=== PATIENT | male | born 1940 | race Caucasian/White ===

== ENCOUNTER 2016-09-14 17:36 | Emergency (ER) | payer MEDICARE ==
[2016-09-14] MEDS ORDERED: ONDANSETRON HCL 4 MG ODT TAB PO ONE (17:40)
[2016-09-14] MEDS ORDERED: BUBBLE GUM ENEMA 480 ML ENEMA PR ONE (17:40)
[2016-09-14 17:45] VITALS: TEMP 98.6; BMI 46.2
--- NOTE | 2016-09-14 17:46 | EDPRACDOC ---
ED Rectal & Constipation Pain - General Information Information Source: Patient, [facility] Mode of Arrival:: Ambulance Home Medications: Home Medications Amlodipine [Norvasc] 10 mg PO DAILY 09/14/16 Benazepril HCl [Lotensin] 20 mg PO BID 09/14/16 Canagliflozin [Invokana] 300 mg PO DAILY 09/14/16 Docusate Sodium [Colace] 100 mg PO TID #30 capsule 09/14/16 Liraglutide [Victoza 2-Darrick] 1.2 mg SQ DAILY 09/14/16 Metoprolol Tartrate [Lopressor] 50 mg PO BID 09/14/16 Naproxen Sodium [Aleve] 440 mg PO QAM 09/14/16 PEG-Electrolytes (Miralax) [Miralax] 17 gm PO DAILY #30 each 09/14/16 Pioglitazone HCl [Actos] 30 mg PO DAILY 09/14/16 Simvastatin [Zocor] 40 mg PO QHS 09/14/16 Allergies/Adverse Reactions: Allergies Allergy/AdvReac Type Severity Reaction Status Date / Time No Known Allergies Allergy Unverified 09/14/16 18:04 - History of Present Illness Onset: 3-4 DAYS Symptoms started: Reports: Spontaneous Location: Reports: Rectum Due To: Reports: Constipation History Of: Reports: None Severity:: Reports: Moderate Worsens: Reports: Nothing Improves: Reports: Nothing Associated Sign & Symptoms: Reports: Nausea - Other History Other History: PT SAID THAT HE HAS BEEN CONSTIPATED FOR THE PAST 3-4 DAYS. HE DEVELOPED NAUSEA AND SOME VOMITING TODAY, SO HE CALLED EMS. PT HAS NOT TAKEN ANYTHING AT HOME FOR HIS SX. PT GIVEN 4 MG OF ZOFRAN PO BY EMS. ED Past Medical History - Patient Medical History Cardiac History: Reports: Hypertension, Hypercholesterolemia Systemic History: Reports: Diabetes Surgical History: Reports: Other (BACK, HIP) - Social Medical History ETOH: None Substance Abuse: None Lives In: Home EDM Review of Systems - Review of Systems ROS Negative Except as Marked: Yes All systems reviewed and were negative except as marked Gastrointestinal: Constipation - Physical Exam Constitutional: Alert (Awake), No apparent distress Oriented to: Time, Person, Place Last recorded Vital Signs: Oxygen Pulse Oxygen Saturation O2 Device Oxygen Flow Rate Fraction of Inspired Oxygen ( FIO2) - HEENT Head: Normal ( normocephalic) Eye Exam: Normal (PERRL, EOMI, Sclera white) Oropharynx: Normal (Pharynx:Moist without exudate,Gums-no swelling) ENT EAC: Normal TMJ: Normal Nose: No Symptoms Reported (septum midline) Neck: Normal (FROM, trachea at midline) - Respiratory/Cardiovascular Respiratory: Normal - CTA (BBS clear to auscultation without adventitious sounds ) Cardiovascular: Bradycardia - GI Auscultation: Decreased Palpation: Normal Tenderness: Diffuse, Mild Rectal Exam: Heme negative stool, Impaction Stool: Brown - Musculoskeletal Back: Normal (Non-Tender) Extremities: Normal (Normal tone, Pulses 2+ No cyanosis or edema, FROM) - Integumentary Skin: Normal, Warm, Dry Lymphatics: Normal (no adenopathy) - Neurologic Memory Impaired: Normal Motor Function: Normal (Normal tone, Pulses 2+ No cyanosis or edema, FROM) Cranial Nerve: Normal (CN II-X11 intact sensation, strength 5/5) Cerebellar: Normal Mood Description: Normal Thought: Coherent Perception: Normal - Re-evaluation Re-evaluation 1 Re-evaluation Time: 21:52 (LARGE BM AFTER DISIMPACTION) - Diagnostic Imaging Abdomen Image interpreted by: Radiologist No acute findings. Moderate to large stool burden noted. No active cardiopulmonary disease. Decision Time to Discharge: 21:52 - Departure Yes I personally saw and evaluated the patient. Disposition: Home Condition: Fair Final Diagnosis: Abdominal pain, Fecal impaction Instructions: Fecal Impaction (ED), Constipation (ED), High Fiber Diet (ED) Education/Counseling Given To: Patient Education/Counseling Given Regarding: Diagnosis, Treatment Prescriptions: Docusate Sodium [Colace] 100 mg PO TID #30 capsule PEG-Electrolytes (Miralax) [Miralax] 17 gm PO DAILY #30 each
--- NOTE | 2016-09-14 18:16 | DIRPT ---
CLINICAL DATA: Abdominal pain and distention. nausea and vomiting and constipation for several days. EXAM: DG ABDOMEN ACUTE W/ 1V CHEST COMPARISON: None. FINDINGS: No evidence of dilated bowel loops. Moderate to large stool burden noted. No evidence of free air. No radiopaque calculi identified. Right hip prosthesis noted. Diffuse aorta iliac atherosclerotic calcification demonstrated. Heart size and mediastinal contours are within normal limits. Both lungs are clear. No evidence of pneumothorax or pleural effusion. IMPRESSION: No acute findings. Moderate to large stool burden noted. No active cardiopulmonary disease. Electronically Signed By: Anderson Vazquez M.D. On: 09/14/2016 18:13
[2016-09-14] MEDS ORDERED: NS 1,000 ML IV ONE (22:25)
[2016-09-14 23:22] VITALS: BP 110/57; PULSE 73
== END 2016-09-14 23:59 | disposition home or self-care (01) ==
LOC: ED 17:36
DX: K56.41 Fecal impaction (principal); E11.9 Type 2 diabetes mellitus without complications
CPT/HCPCS: 74022; 82270; 82962; 99284; A9270; J3490

== ENCOUNTER 2016-09-27 17:32 | Inpatient (IN) | payer MEDICARE ==
[2016-09-27 18:51] LABS: MPV 8.3 fL (7.4-10.4)
[2016-09-27] MEDS ORDERED: NS 1,000 ML IV ONE ×3 (19:04→20:50)
[2016-09-27] MEDS ORDERED: SODIUM CHLORIDE 0.9% 3 ML FLUSH FLUSH PRN (19:04)
[2016-09-27 19:05] LABS: BLOOD UREA NITROGEN 33 MG/DL (9-20); CALC CORRECTED 9.5 MG/DL (8.4-10.2); CALCIUM 8.5 MG/DL (8.4-10.2); CALCULATED OSMOLALITY 271 MOs/Kg (270-290); CHLORIDE 103 mEq/L (98-107); GLUCOSE 208 MG/DL (70-99); SODIUM LEVEL 134 mEq/L (137-146); TOTAL PROTEIN 6.2 G/DL (6.3-8.2)
--- NOTE | 2016-09-27 19:12 | EDPRACDOC ---
- General Information Information Source: Patient Mode Of Arrival: Car - History of Present Illness Onset: 2 weeks Pain Severity: None Pain Radiation: Reports: No Radiation Adult Abdominal History: Reports: Bowel Obstruction (RECENT SBO 2-3 WKS AGO) Modifying Factors: improves with: Other (PT STATES JUST ABOUT ANYTHING HE DOES CAUSES HIM TO HAVE DIARRHEA AND HE CANNOT CONTROL IT.) Associated Signs & Symptoms: Reports: Diarrhea Oral Intake: Normal Urinary Output: Decreased <Eve Best - Last Filed: 09/27/16 22:00> <Bud Abreu - Last Filed: 09/27/16 22:17> - General Information Chief Complaint: Abdominal Pain Stated Complaint: ABD PAIN Time Seen by Provider: 09/27/16 18:54 Home Medications: Home Medications Amlodipine [Norvasc] 10 mg PO DAILY 09/14/16 Benazepril HCl [Lotensin] 20 mg PO BID 09/14/16 Canagliflozin [Invokana] 300 mg PO DAILY 09/14/16 Docusate Sodium [Colace] 100 mg PO TID #30 capsule 09/14/16 Liraglutide [Victoza 2-Darrick] 1.2 mg SQ DAILY 09/14/16 Metoprolol Tartrate [Lopressor] 50 mg PO BID 09/14/16 Naproxen Sodium [Aleve] 440 mg PO QAM 09/14/16 PEG-Electrolytes (Miralax) [Miralax] 17 gm PO DAILY #30 each 09/14/16 Pioglitazone HCl [Actos] 30 mg PO DAILY 09/14/16 Simvastatin [Zocor] 40 mg PO QHS 09/14/16 Aspirin (Enteric Coated) [Ecotrin] 81 mg PO DAILY 09/27/16 Mv,Minerals/FA/Lycopene/Ginkgo [One Daily For Men 50+ Adv Tab] 1 tab PO DAILY Allergies/Adverse Reactions: Allergies Allergy/AdvReac Type Severity Reaction Status Date / Time No Known Allergies Allergy Unverified 09/14/16 18:04 - History of Present Illness HPI: PT PRESENTS TO ED WITH 13 DAYS OF DIARRHEA AFTER BEING IN THE HOSPITAL FOR SBO. STATES HIS BLOCKAGE WAS ABLE TO PASS WITHOUT SURGERY BUT SINCE HAS HAD DIARRHEA. STATES YELLOW MUCOUS VERY MALODOROUS. (Eve Bets) ED Past Medical History - History Reviewed Yes Nurses notes reviewed and agree except as marked Travel Outside of [place] in the Last 3 Months?: No - Patient Medical History Cardiac History: Reports: Hypertension, Hypercholesterolemia Psychological History: Denies: Depression Systemic History: Reports: Diabetes. Denies: Cancer Surgical History: Reports: Other (BACK, HIP) - Social Medical History Smoking Status: Never smoker ETOH: None Substance Abuse: None Lives With: Other Lives In: Home <Eve Best - Last Filed: 09/27/16 22:00> EDM Review of Systems - Review of Systems ROS Negative Except as Marked: Yes All systems reviewed and were negative except as marked Constitutional: No Symptoms Reported. negative: Fever, Chills, Weakness, Fatigue, Loss of Appetite Eyes: No Symptoms Reported. negative: Redness, Blurred Vision, Double Vision, Discharge, Pain, Light Sensitive, Photophobia Ears: No Symptoms Reported. negative: Pain, Hearing Loss, Drainage, Ear Pulling Throat: No Symptoms Reported. negative: Pain, Swelling Nose: No Symptoms Reported. negative: Congestion, Bleeding, Discharge, Injection, Swelling, Deformity, Ecchymosis, Tender, Abrasion, Laceration Mouth: No Symptoms Reported. negative: Pain, Drooling Respiratory: No Symptoms Reported. negative: Cough, Brassy Cough, Barky Cough, Shortness of Breath, Wheezing, Hemoptysis Cardiovascular: No Symptoms Reported. negative: Chest Pain, Palpitations, Syncope, Edema, Orthopnea, PND, Skin Mottling, Cyanosis Gastrointestinal: Diarrhea. negative: Constipation, Formula Intolerance, Melena , Nausea, Pain, Vomiting Genitourinary: No Symptoms Reported. negative: Dysuria, Hematuria, Frequency, Discharge, Bleeding, Testicular Pain, Neurological: No Symptoms Reported. negative: Headache, Dizziness, Seizure, Numbness, Weakness, Speech Difficulty, Gait Difficulty Musculoskeletal: No Symptoms Reported. negative: Neck, Chestwall, Ribs, Back, Shoulder, Arm, Elbow, Forearm, Wrist, Hand, Pelvis, Hip, Femur, Knee, Leg, Ankle , Foot Integumentary: No Symptoms Reported. negative: Itching, Rash, Bruising, Wound Allergic/Immunologic: No Symptoms Reported. negative: Hives, Itching Hematologic: No Symptoms Reported. negative: Lymphadenopathy, Easy Bruising, Easy Bleeding Endocrine: No Symptoms Reported. negative: Weight Gain, Weight Loss Psychiatric: No Symptoms Reported. negative: Anxiety, Depression, Hallucinations, Insomnia, Suicidal <Eve Best - Last Filed: 09/27/16 22:00> - Physical Exam Constitutional: No apparent distress, Alert (Awake) Oriented to: Time, Person, Place - HEENT Head: Normal ( normocephalic) Eye Exam: Normal (PERRL, EOMI, Sclera white) Oropharynx: Normal (Pharynx:Moist without exudate,Gums-no swelling) Tympanic Membrane: Normal ENT EAC: Normal TMJ: Normal Nose: No Symptoms Reported (septum midline) Neck: Normal (FROM, trachea at midline) - Respiratory/Cardiovascular Respiratory: Normal - CTA (BBS clear to auscultation without adventitious sounds ) Cardiovascular: Normal (RRR without murmur, gallop or rub) - GI Auscultation: Increased Palpation: Normal (Soft,No rebound or guarding, non distended) Tenderness: Non tender Casillas's Sign: Negative - Musculoskeletal Back: Normal (Non-Tender) Extremities: Normal (Normal tone, Pulses 2+ No cyanosis or edema, FROM) - Integumentary Skin: Normal, Warm, Dry Lymphatics: Normal (no adenopathy) - Neurologic Memory Impaired: Normal Motor Function: Normal (Normal tone, Pulses 2+ No cyanosis or edema, FROM) Cranial Nerve: Normal (CN II-X11 intact sensation, strength 5/5) Cerebellar: Normal Mood Description: Normal Perception: Normal <Eve Best - Last Filed: 09/27/16 22:00> - Differential Diagnosis Gastroenteritis, Other (CDIFF COLITIS) - Results 09/27/16 18:24 09/27/16 18:24 <Eve Best - Last Filed: 09/27/16 22:00> - Results 09/27/16 18:24 09/27/16 18:24 <Bud Abreu - Last Filed: 09/27/16 22:17> - Results WBC 19.3 xk/uL (3.8-10.8) H 09/27/16 18:24 RBC 3.76 xM/uL (4.70-6.10) L 09/27/16 18:24 Hgb 11.6 g/dL (14.0-18.0) L 09/27/16 18:24 Hct 34.9 % (42-52) L 09/27/16 18:24 MCV 93 fL (80-94) 09/27/16 18:24 MCH 30.8 pg (27-32) 09/27/16 18:24 MCHC 33.2 g/dl (33-36) 09/27/16 18:24 RDW 13.8 % (11.5-14.5) 09/27/16 18:24 Plt Count 471 xk/uL (130-400) H 09/27/16 18:24 MPV 8.3 fL (7.4-10.4) 09/27/16 18:24 Neut % (Auto) Cancelled 09/27/16 18:24 Lymph % (Auto) Cancelled 09/27/16 18:24 [place] % (Auto) Cancelled 09/27/16 18:24 Eos % (Auto) Cancelled 09/27/16 18:24 Baso % (Auto) Cancelled 09/27/16 18:24 Absolute Neuts (auto) Cancelled 09/27/16 18:24 Absolute Lymphs (auto) Cancelled 09/27/16 18:24 Seg Neuts % (Manual) 28 % (45-76) L 09/27/16 18:24 Band Neutrophils % 0 % (0-5) 09/27/16 18:24 Lymphocytes % (Manual) 67 % (17-44) H 09/27/16 18:24 Monocytes % (Manual) 4 % (0-10) 09/27/16 18:24 Eosinophils % (Manual) 1 % (0-5) 09/27/16 18:24 Absolute Neutrophils 5.40 xk/uL (1.7-8.2) 09/27/16 18:24 Absolute Lymphocytes 12.93 xk/uL (0.65-4.75) H 09/27/16 18:24 Platelet Estimate Norm (NORMAL) 09/27/16 18:24 RBC Morphology 1+ aniso 09/27/16 18:24 Sodium 134 mEq/L (137-146) L 09/27/16 18:24 Potassium 4.5 mEq/L (3.5-5.1) 09/27/16 18:24 Chloride 103 mEq/L (98-107) 09/27/16 18:24 Carbon Dioxide 20 mMOL/L (22-33) L 09/27/16 18:24 Anion Gap 16 mEq/L (8-16) 09/27/16 18:24 BUN 33 MG/DL (9-20) H 09/27/16 18:24 Creatinine 1.70 MG/DL (0.66-1.25) H 09/27/16 18:24 Estimated GFR (MDRD) 39 mL/min (>=60) L 09/27/16 18:24 Glucose 208 MG/DL (70-99) H 09/27/16 18:24 Calculated Osmolality 271 MOs/Kg (270-290) 09/27/16 18:24 Lactic Acid 1.1 mEq/L (0.7-2.1) 09/27/16 19:37 Calcium 8.5 MG/DL (8.4-10.2) 09/27/16 18:24 Corrected Calcium 9.5 MG/DL (8.4-10.2) 09/27/16 18:24 Total Bilirubin 0.6 MG/DL (0.2-1.3) 09/27/16 18:24 AST 89 IU/L (17-59) H 09/27/16 18:24 ALT 85 IU/L (21-72) H 09/27/16 18:24 Alkaline Phosphatase 79 IU/L (50-160) 09/27/16 18:24 Total Protein 6.2 G/DL (6.3-8.2) L 09/27/16 18:24 Albumin 3.0 G/DL (3.5-5.0) L 09/27/16 18:24 Amylase 74 IU/L (30-110) 09/27/16 18:24 Lipase 181 U/L (23-300) 09/27/16 18:24 Urine Color Yellow 09/27/16 20:00 Urine Clarity Sl hzy 09/27/16 20:00 Urine pH 5.0 (5.0-8.0) 09/27/16 20:00 Ur Specific [place] 1.015 (1.003-1.035) 09/27/16 20:00 Urine Protein 1+ (NEG/TRACE) H 09/27/16 20:00 Urine Glucose (UA) 3+ (NEGATIVE) 09/27/16 20:00 Urine Ketones Neg (NEGATIVE) 09/27/16 20:00 Urine Occult Blood Neg (NEG/TRACE) 09/27/16 20:00 Urine Nitrite Neg (NEGATIVE) 09/27/16 20:00 Urine Bilirubin Neg (NEGATIVE) 09/27/16 20:00 Urine Urobilinogen <2.0 MG/DL (0-1) 09/27/16 20:00 Ur Leukocyte Esterase Neg (NEGATIVE) 09/27/16 20:00 Urine RBC 0-2 (0-2) 09/27/16 20:00 Urine WBC 2-5 (0-2) H 09/27/16 20:00 Ur Epithelial Cells 2+ 09/27/16 20:00 Urine Bacteria 1+ (NEG/FEW) H 09/27/16 20:00 Urine Mucus Occ (NEG/OCC) 09/27/16 20:00 Lab Results 09/27/16 09/27/16 09/27/16 20:00 19:37 18:24 WBC 19.3 H RBC 3.76 L Hgb 11.6 L Hct 34.9 L MCV 93 MCH 30.8 MCHC 33.2 RDW 13.8 Plt Count 471 H MPV 8.3 Neut % (Auto) Cancelled Lymph % (Auto) Cancelled [place] % (Auto) Cancelled Eos % (Auto) Cancelled Baso % (Auto) Cancelled Absolute Neuts (auto) Cancelled Absolute Lymphs (auto) Cancelled Seg Neuts % (Manual) 28 L Band Neutrophils % 0 Lymphocytes % (Manual) 67 H Monocytes % (Manual) 4 Eosinophils % (Manual) 1 Absolute Neutrophils 5.40 Absolute Lymphocytes 12.93 H Platelet Estimate Norm RBC Morphology 1+ aniso Sodium Potassium Chloride Carbon Dioxide Anion Gap BUN Creatinine Estimated GFR (MDRD) Glucose Calculated Osmolality Lactic Acid 1.1 Calcium Corrected Calcium Total Bilirubin AST ALT Alkaline Phosphatase Total Protein Albumin Amylase Lipase Urine Color Yellow Urine Clarity Sl hzy Urine pH 5.0 Ur Specific [place] 1.015 Urine Protein 1+ H Urine Glucose (UA) 3+ Urine Ketones Neg Urine Occult Blood Neg Urine Nitrite Neg Urine Bilirubin Neg Urine Urobilinogen <2.0 Ur Leukocyte Esterase Neg Urine RBC 0-2 Urine WBC 2-5 H Ur Epithelial Cells 2+ Urine Bacteria 1+ H Urine Mucus Occ 09/27/16 18:24 WBC RBC Hgb Hct MCV MCH MCHC RDW Plt Count MPV Neut % (Auto) Lymph % (Auto) [place] % (Auto) Eos % (Auto) Baso % (Auto) Absolute Neuts (auto) Absolute Lymphs (auto) Seg Neuts % (Manual) Band Neutrophils % Lymphocytes % (Manual) Monocytes % (Manual) Eosinophils % (Manual) Absolute Neutrophils Absolute Lymphocytes Platelet Estimate RBC Morphology Sodium 134 L Potassium 4.5 Chloride 103 Carbon Dioxide 20 L Anion Gap 16 BUN 33 H Creatinine 1.70 H Estimated GFR (MDRD) 39 L Glucose 208 H Calculated Osmolality 271 Lactic Acid Calcium 8.5 Corrected Calcium 9.5 Total Bilirubin 0.6 AST 89 H ALT 85 H Alkaline Phosphatase 79 Total Protein 6.2 L Albumin 3.0 L Amylase 74 Lipase 181 Urine Color Urine Clarity Urine pH Ur Specific [place] Urine Protein Urine Glucose (UA) Urine Ketones Urine Occult Blood Urine Nitrite Urine Bilirubin Urine Urobilinogen Ur Leukocyte Esterase Urine RBC Urine WBC Ur Epithelial Cells Urine Bacteria Urine Mucus (Eve Best) (Bud Abreu) <Eve Best - Last Filed: 09/27/16 22:00> - Departure Yes I personally saw and evaluated the patient. Disposition: Admit IP To This Hospital Decision to Admit Time: 22:17 Decision to admit date: 09/27/16 Decision to admit: from ED - Physician Consulted Hospitalist Time Called: 22:17 Provider Called: Andrew Dillon Time Parachute Folder Returned Call: 22:17 <Bud Abreu - Last Filed: 09/27/16 22:17> - Departure Condition: Stable Final Diagnosis: Colitis, Dehydration Sacral decubitus ulcer Qualifiers: Pressure ulcer stage: unspecified pressure ulcer stage Qualified Code(s): L89.159 - Pressure ulcer of sacral region, unspecified stage Prescriptions: No Action Simvastatin [Zocor] 40 mg PO QHS Naproxen Sodium [Aleve] 440 mg PO QAM Liraglutide [Victoza 2-Darrick] 1.2 mg SQ DAILY Pioglitazone HCl [Actos] 30 mg PO DAILY Canagliflozin [Invokana] 300 mg PO DAILY Benazepril HCl [Lotensin] 20 mg PO BID Amlodipine [Norvasc] 10 mg PO DAILY Metoprolol Tartrate [Lopressor] 50 mg PO BID Docusate Sodium [Colace] 100 mg PO TID #30 capsule PEG-Electrolytes (Miralax) [Miralax] 17 gm PO DAILY #30 each Aspirin (Enteric Coated) [Ecotrin] 81 mg PO DAILY Mv,Minerals/FA/Lycopene/Ginkgo [One Daily For Men 50+ Adv Tab] 1 tab PO DAILY
[2016-09-27 20:17] LABS: SEG NEUTROPHIL 28 % (45-76)
[2016-09-27 20:18] LABS: LEUKOCYTES/URINE NEG (NEGATIVE); NITRITE/URINE NEG (NEGATIVE); RBC/URINE 0-2 (0-2); URINE OCCULT BLOOD NEG (NEG/TRACE)
[2016-09-27] MEDS ORDERED: Pharmacy Review for Metformin - IV Contrast Given SCH (21:00)
--- NOTE | 2016-09-27 21:41 | DIRPT ---
CLINICAL DATA: Sacral decubitus cellulitis. Evaluate for pelvic involvement. Diarrhea for 13 days. EXAM: CT ABDOMEN AND PELVIS WITH CONTRAST TECHNIQUE: Multidetector CT imaging of the abdomen and pelvis was performed using the standard protocol following bolus administration of intravenous contrast. CONTRAST: 70 mL Isovue 370 COMPARISON: 10/24/2015 FINDINGS: The lung bases are clear. Coronary artery calcifications. The liver, spleen, gallbladder, pancreas, adrenal glands, inferior vena cava, and retroperitoneal lymph nodes are unremarkable. Multiple renal cysts bilaterally similar to prior study. No hydronephrosis. Extensive calcification of the abdominal aorta and branch vessels. Particularly prominent calcification in the celiac axis and superior mesenteric artery. 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 Calcification also demonstrated in the inferior mesenteric artery. Stomach and small bowel are decompressed. Gas and stool in the colon without abnormal distention. No small bowel wall thickening. No free air or free fluid in the abdomen. Small periumbilical hernia containing fat. Pelvis: The rectosigmoid colon is decompressed but there appears to be diffuse wall thickening of the rectosigmoid colon with mild infiltration in the surrounding fat. This could represent colitis either due to infectious or inflammatory process. Consider ulcer of colitis. Scattered diverticula are present. No definite findings of diverticulitis. Bladder wall is not significantly thickened. Prostate gland is enlarged, measuring 4.4 cm transverse dimension. No pelvic mass or lymphadenopathy. Appendix is not identified. Right hip arthroplasty. Streak artifact from the arthroplasty obscures visualization of some of the low pelvis. The sacrum appears intact without evidence of sclerosis or cortical disruption. Nothing to suggest osteomyelitis. Focal skin defect and infiltration below the level of the coccyx consistent with known sacral ulceration. No abscess. No definite extension to the perianal region. IMPRESSION: 1. Inflammatory changes involving the rectosigmoid colon suggesting infectious or inflammatory colitis. Consider ulcerative colitis. 2. Mild inflammatory changes and ulceration at the midline over the coccygeal region. No evidence of bone involvement or abscess. 3. Extensive vascular calcifications involving coronary arteries, abdominal aorta, and mesenteric vessels. Electronically Signed By: Randy Chaparro M.D. On: 09/27/2016 21:38
--- NOTE | 2016-09-27 22:27 | HISTPHYS ---
- Chief Complaint I have had diarrhea for the past 2 weeks after getting seen (disimpacted) in the emergency room and this is terrible. - History of Present Illness Patient very pleasant 76-year-old white were who never smoked but been exposed to secondhand smoke and states that ever since I got disimpacted in the emergency room last week I have had diarrhea. Diarrhea occurs with any motion. It is a real problem. Stool was black today and heme-positive. Stool is not orally chest watery. I been feeling weak, he says, and falling or nearly falling is becoming a significant occurrence. He denies any exposure to anyone with diarrhea but does like to eat at [facility]. He has had a 30 year history of back problems impeding his ability to ambulate which is gotten worse recently. With the diarrhea and his difficulty getting around he has developed worsening of his previously existing sacral decubitus and now needs a specialty bed. He saw Dr. Springer in the past without much improvement who then referred him to the metal polisher which seems to have helped to a mild degree over the past 5 months. Three months ago he had E coli growing out of the sacral decubitus and he took an antibiotic for this but otherwise is not been on any recent antibiotics. He was seen in Dr. Shepard office today and was recommended to follow up with Dr. Whittaker. Even though his white counts little over 19,000 his stool for C diff is negative. He never smoked but he has been exposed to lot of secondhand smoke. His not too long ago metastatic breast cancer. He uses a cane which has progressed to a walker with his increased weakness. - Medical History Cardiac History: Reports: Hypertension, Hypercholesterolemia Respiratory History: Reports: No Significant History GI/ History: Reports: PMH GI Yes/No Other Musculoskeletal History: Reports: Arthritis Systemic History: Reports: Diabetes. Denies: Cancer Neurological History: Reports: Other Psychological History: Denies: Depression - Surgical History Reports: Other (BACK, HIP) - Medictions/Allergies Allergies No Known Allergies Allergy (Unverified 09/14/16 18:04) Current Medication List: Reviewed Home Medications Amlodipine [Norvasc] 10 mg PO DAILY 09/14/16 Benazepril HCl [Lotensin] 20 mg PO BID 09/14/16 Canagliflozin [Invokana] 300 mg PO DAILY 09/14/16 Docusate Sodium [Colace] 100 mg PO TID #30 capsule 09/14/16 Liraglutide [Victoza 2-Darrick] 1.2 mg SQ DAILY 09/14/16 Metoprolol Tartrate [Lopressor] 50 mg PO BID 09/14/16 Naproxen Sodium [Aleve] 440 mg PO QAM 09/14/16 PEG-Electrolytes (Miralax) [Miralax] 17 gm PO DAILY #30 each 09/14/16 Pioglitazone HCl [Actos] 30 mg PO DAILY 09/14/16 Simvastatin [Zocor] 40 mg PO QHS 09/14/16 Aspirin (Enteric Coated) [Ecotrin] 81 mg PO DAILY 09/27/16 Mv,Minerals/FA/Lycopene/Ginkgo [One Daily For Men 50+ Adv Tab] 1 tab PO DAILY - Family History Reports: Hypertension, Diabetes, Cancer (Father with leukemia age 67), Blood Disorders (Mom with blood clot age 88), Other (Hyper cholesterolemia) - Social History Travel Outside of [place] in the Last 3 Months?: No Lives: Alone Smoking Status: Never smoker (But 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) Social History: Denies: Alcohol Use, Substance Use Disorder - Review of Systems Constitutional: No Symptoms Reported (No Fever, chills, wt loss/gain, diaphoresis,fatigue/malaise.) Eyes: No Symptoms Reported (No blurry vision, visual changes, eye pain, or eye redness.) Ears: No Symptoms Reported (No ear pain or discharge) Nose: No Symptoms Reported (No nasal discharge/congestion or bleeding) Mouth: No Symptoms Reported (No oropharyngeal lesions or erythema) Throat/Neck: No Symptoms Reported (No throat pain or swelling.No oropharyngeal lesions or erythema.) Respiratory: No Symptoms Reported (No cough, wheezing, or shortness of breath.) Cardiovascular: No Symptoms Reported (No chest pain or palpitations.) Gastrointestinal: Diarrhea, Melena, Other (Obesity BMI 32.1) Genitourinary: No Symptoms Reported (No dysuria or hematuria.) Neurological: Gait Difficulty, Numbness (Legs), Weakness (Lower extremity), Tingling (Leg) Musculoskeletal:: Chronic low back pain, Osteoarthritis Integumentary: Wound, Pressure Sore (Sacral decubitus since been problematic of which to take care) Allergic/Immunologic: No Symptoms Reported (no rashes or lesions) Hematologic: No Symptoms Reported (No chronic anemia, bleeding, or easy bruising.), Other (Lymphatics- no lymph node swelling or pain.) Endocrine: Diabetes Psychiatric: No Symptoms Reported (Fully oriented, with normal and appropriate affect.) - Physical Exam Vital Signs: Initial Vitals Temperature 98.7 F 09/27/16 18:23 Pulse Rate 94 09/27/16 18:23 Respiratory Rate 18 09/27/16 18:23 Blood Pressure 143/72 09/27/16 18:23 Pulse Oxygen Saturation 96 09/27/16 18:23 Constitutional: Alert (Awake, Fully oriented. Normal and appropriate affect.Well appearing. Well nourished.), No apparent distress Oriented to: Time, Person, Place - HEENT Head: Normal (normocephalic, atraumatic.), Other (No cervical lymphadenopathy. No supraclavicular lymphadenopathy. Neck: No palpable mass, supple , trachea midline.) Eye: Normal (pupils equal, reactive to light, and round; EOMI, Sclera white) Oropharynx: Normal (Pharynx: Moist without exudate,Gums-no swelling, No oropharyngeal lesions or erythema, Mucous membranes are dry.) ENT EAC: Normal (No oropharyngeal lesions or erythema. Mucous membranes are dry. ) TMJ: Normal Nose: No Symptoms Reported (septum midline, Nares patent, without discharge or bleeding.) Respiratory: Normal - CTA (Clear to auscultation bilaterally. No wheezing, rales , rhonchi. Chest wall movements are symmetric. No use of accessory muscles to breathe.) Cardiovascular: Normal (RRR , Normal S1, S2. No murmurs, rubs, or gallops. PMI non-displaced. Carotids: no carotid bruits. No bradycardia or tachycardia. DP pulses 2+ bilaterally.) - GI Auscultation: Normal (normal active sounds) Palpation: Normal (Soft,non distended,nontender. No hepatosplenomegaly.) Tenderness: Non tender (No rebound or guarding) Casillas's Sign: Negative Rectal Exam: Heme positive stool Stool: Loose - Musculoskeletal Back: Normal (Non-Tender) Extremities: Normal (Normal tone, DP pulses 2+ bilaterally, No cyanosis or edema bilaterally, FROM bilaterally.) Spine: non-tender, limited range of motion - Integumentary Skin: Other (Sacral decubitus that is been problematic and needs physical therapy evaluation) Lymphatics: Normal (No cervical lymphadenopathy. No supraclavicular lymphadenopathy.) - Neurologic Memory Impaired: Normal Motor Function: Normal (Motor 5/5 throughout.Normal tone, Pulses 2+ No cyanosis or edema, FROM) Cranial Nerve: Normal (CN II-XII intact sensation, strength 5/5) Cerebellar: Normal (Babinski: toes downgoing bilaterally. Intact Finger to nose. Sensory grossly intact to light touch. Intact rapid alternating movements bilaterally. No pronator drift.) Mood Description: Normal (Fully oriented. Normal and appropriate affect.) Thought: Coherent Perception: Normal (Normal and appropriate affect.) - Focused CV Perfusion Exam Vital Signs: Last Vital Signs Temp 98.7 F 09/27/16 18:23 Pulse 94 09/27/16 18:23 Resp 18 09/27/16 18:23 BP 143/72 09/27/16 18:23 Pulse Ox 96 09/27/16 18:23 - Lab Results 09/27/16 18:24 09/27/16 18:24 Laboratory Results - last 24 hr 09/27/16 09/27/16 09/27/16 00:00 18:24 18:24 WBC 19.3 H RBC 3.76 L Hgb 11.6 L Hct 34.9 L MCV 93 MCH 30.8 MCHC 33.2 RDW 13.8 Plt Count 471 H MPV 8.3 Neut % (Auto) Cancelled Lymph % (Auto) Cancelled [place] % (Auto) Cancelled Eos % (Auto) Cancelled Baso % (Auto) Cancelled Absolute Neuts (auto) Cancelled Absolute Lymphs (auto) Cancelled Seg Neuts % (Manual) 28 L Band Neutrophils % 0 Lymphocytes % (Manual) 67 H Monocytes % (Manual) 4 Eosinophils % (Manual) 1 Absolute Neutrophils 5.40 Absolute Lymphocytes 12.93 H Platelet Estimate Norm RBC Morphology 1+ aniso Sodium 134 L Potassium 4.5 Chloride 103 Carbon Dioxide 20 L Anion Gap 16 BUN 33 H Creatinine 1.70 H Estimated GFR (MDRD) 39 L Glucose 208 H Hemoglobin A1c Calculated Osmolality 271 Lactic Acid Calcium 8.5 Corrected Calcium 9.5 Total Bilirubin 0.6 AST 89 H ALT 85 H Alkaline Phosphatase 79 Total Protein 6.2 L Albumin 3.0 L Amylase 74 Lipase 181 TSH 4.67 Urine Color Urine Clarity Urine pH Ur Specific [place] Urine Protein Urine Glucose (UA) Urine Ketones Urine Occult Blood Urine Nitrite Urine Bilirubin Urine Urobilinogen Ur Leukocyte Esterase Urine RBC Urine WBC Ur Epithelial Cells Urine Bacteria Urine Mucus 09/27/16 09/27/16 09/27/16 19:37 20:00 22:28 WBC RBC Hgb Hct MCV MCH MCHC RDW Plt Count MPV Neut % (Auto) Lymph % (Auto) [place] % (Auto) Eos % (Auto) Baso % (Auto) Absolute Neuts (auto) Absolute Lymphs (auto) Seg Neuts % (Manual) Band Neutrophils % Lymphocytes % (Manual) Monocytes % (Manual) Eosinophils % (Manual) Absolute Neutrophils Absolute Lymphocytes Platelet Estimate RBC Morphology Sodium Potassium Chloride Carbon Dioxide Anion Gap BUN Creatinine Estimated GFR (MDRD) Glucose Hemoglobin A1c 6.9 H Calculated Osmolality Lactic Acid 1.1 Calcium Corrected Calcium Total Bilirubin AST ALT Alkaline Phosphatase Total Protein Albumin Amylase Lipase TSH Urine Color Yellow Urine Clarity Sl hzy Urine pH 5.0 Ur Specific [place] 1.015 Urine Protein 1+ H Urine Glucose (UA) 3+ Urine Ketones Neg Urine Occult Blood Neg Urine Nitrite Neg Urine Bilirubin Neg Urine Urobilinogen <2.0 Ur Leukocyte Esterase Neg Urine RBC 0-2 Urine WBC 2-5 H Ur Epithelial Cells 2+ Urine Bacteria 1+ H Urine Mucus Occ - Diagnostic Findings CT abdomen pelvis shows the following: FINDINGS: The lung bases are clear. Coronary artery calcifications. The liver, spleen, gallbladder, pancreas, adrenal glands, inferior vena cava, and retroperitoneal lymph nodes are unremarkable. Multiple renal cysts bilaterally similar to prior study. No hydronephrosis. Extensive calcification of the abdominal aorta and branch vessels. Particularly prominent calcification in the celiac axis and superior mesenteric artery. 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 Calcification also demonstrated in the inferior mesenteric artery. Stomach and small bowel are decompressed. Gas and stool in the colon without abnormal distention. No small bowel wall thickening. No free air or free fluid in the abdomen. Small periumbilical hernia containing fat. Pelvis: The rectosigmoid colon is decompressed but there appears to be diffuse wall thickening of the rectosigmoid colon with mild infiltration in the surrounding fat. This could represent colitis either due to infectious or inflammatory process. Consider ulcer of colitis. Scattered diverticula are present. No definite findings of diverticulitis. Bladder wall is not significantly thickened. Prostate gland is enlarged, measuring 4.4 cm transverse dimension. No pelvic mass or lymphadenopathy. Appendix is not identified. Right hip arthroplasty. Streak artifact from the arthroplasty obscures visualization of some of the low pelvis. The sacrum appears intact without evidence of sclerosis or cortical disruption. Nothing to suggest osteomyelitis. Focal skin defect and infiltration below the level of the coccyx consistent with known sacral ulceration. No abscess. No definite extension to the perianal region. IMPRESSION: 1. Inflammatory changes involving the rectosigmoid colon suggesting infectious or inflammatory colitis. Consider ulcerative colitis. 2. Mild inflammatory changes and ulceration at the midline over the coccygeal region. No evidence of bone involvement or abscess. 3. Extensive vascular calcifications involving coronary arteries, abdominal aorta, and mesenteric vessels. - Assessment (1) Ischemic colitis K55.9 - VASCULAR DISORDER OF INTESTINE, UNSPECIFIED Chronic Present on Admission: Yes My main concern is that he has ischemic colitis and will consult Dr. Whittaker. May need surgical intervention or angiography. (2) Diarrhea R19.7 - DIARRHEA, UNSPECIFIED Acute Present on Admission: Yes Qualifiers: Diarrhea type: unspecified type Qualified Code(s): R19.7 - Diarrhea, unspecified Concerned his diarrhea is due to ischemic colitis and may need angiogram to consider whether not he needs a stent or more. Will consult Dr. Whittaker in the morning as Dr. Shepard has requested for him in the office. Stool for C difficile is negative and cultures white cells etc are pending. 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 Physical therapy for wound care is ordered. (4) Abdominal pain R10.9 - UNSPECIFIED ABDOMINAL PAIN Acute Present on Admission: Yes Likely associated with the etiology of his colitis. (5) Hypertension I10 - ESSENTIAL (PRIMARY) HYPERTENSION Chronic Present on Admission: Yes Qualifiers: Hypertension type: essential hypertension Qualified Code(s): I10 - Essential (primary) hypertension Continuation of previous antihypertensive therapy is necessary. (6) Non-insulin dependent type 2 diabetes mellitus E11.9 - TYPE 2 DIABETES MELLITUS WITHOUT COMPLICATIONS Chronic Present on Admission: Yes Sliding scale insulin therapy and continuation of previous medications is necessary. Glycohemoglobin and urine microalbumin is ordered. (7) Hyperlipidemia E78.5 - HYPERLIPIDEMIA, UNSPECIFIED Chronic Present on Admission: Yes Qualifiers: Hyperlipidemia type: mixed hyperlipidemia Qualified Code(s): E78.2 - Mixed hyperlipidemia Switch the Zocor to Lipitor due to its interaction with the Norvasc. (8) Leukocytosis D72.829 - ELEVATED WHITE BLOOD CELL COUNT, UNSPECIFIED Acute Present on Admission: Yes Qualifiers: Leukocytosis type: bandemia Qualified Code(s): D72.825 - Bandemia Likely associated with this colitis. Case Care Discussed with: Patient, Nursing Staff, Resource Management Total Time: 1 hr 22 min Critical Care: No Code: 48524
[2016-09-27] MEDS ORDERED: SENNA CONCENTRATE TAB PO PRN (22:28)
[2016-09-27] MEDS ORDERED: GLUCOSE (ORAL GEL) 15 GM TUBE PO PRN (22:28)
[2016-09-27] MEDS ORDERED: TUSSIONEX 5 ML ORAL SYRINGE PO PRN (22:28)
[2016-09-27] MEDS ORDERED: ACETAMINOPHEN 325 MG SUPP PR PRN (22:28)
[2016-09-27] MEDS ORDERED: ONDANSETRON HCL 4 MG/2 ML VIAL IV PRN (22:28)
[2016-09-27] MEDS ORDERED: BENZONATATE 100 MG PERLES PO PRN (22:28)
[2016-09-27] MEDS ORDERED: ACETAMINOPHEN 325 MG/TAB TABLET PO PRN (22:28)
[2016-09-27] MEDS ORDERED: GLUCAGON 1 MG VIAL SQ PRN (22:28)
[2016-09-27] MEDS ORDERED: PROMETHAZINE 25 MG/ML VIAL IV PRN (22:28)
[2016-09-27] MEDS ORDERED: BISACODYL 10 MG SUPP PR PRN (22:28)
[2016-09-27] MEDS ORDERED: DEXTROSE 25 GM/50 ML PFS IV PRN (22:28)
[2016-09-27] MEDS ORDERED: OXYCODONE HCL 5 MG TABLET PO PRN (22:30)
[2016-09-27] MEDS ORDERED: ZOLPIDEM TARTRATE 5 MG TAB PO PRN (22:30)
[2016-09-27] MEDS ORDERED: Albuterol/Ipratropium Neb 3 ML NEB NEB PRN (22:30)
[2016-09-27] MEDS ORDERED: ENOXAPARIN 40 MG/0.4 ML PFS SQ SCH (23:00)
[2016-09-27] MEDS ORDERED: LIRAGLUTIDE 18 MG/3ML (0.6 MG/0.1 ML) PEN SQ SCH (23:00)
[2016-09-27] MEDS: NS 1,000 ML IV SCH (23:52)
[2016-09-28] MEDS: ENOXAPARIN 60 MG/0.6 ML PFS SQ SCH ×2 (00:05→21:32)
[2016-09-28] MEDS: PROBIOTIC BLEND TAB PO SCH ×4 (02:31→17:12)
[2016-09-28] MEDS: SODIUM CHLORIDE 0.9% 3 ML FLUSH FLUSH SCH ×2 (06:52→11:41)
[2016-09-28] MEDS: Docusate Sodium 100 MG CAP PO SCH ×2 (06:52→11:41)
[2016-09-28 07:22] LABS: BLOOD UREA NITROGEN 28 MG/DL (9-20); CALCIUM 7.8 MG/DL (8.4-10.2); CALCULATED OSMOLALITY 268 MOs/Kg (270-290); CHLORIDE 110 mEq/L (98-107); GLUCOSE 133 MG/DL (70-99); SODIUM LEVEL 135 mEq/L (137-146)
[2016-09-28 07:31] LABS: MPV 8.3 fL (7.4-10.4)
[2016-09-28] MEDS: REGULAR INSULIN 100 UNITS/ML - 3 ML VIAL SQ SCH ×5 (07:52→23:38)
[2016-09-28] MEDS ORDERED: ATORVASTATIN 40 MG TAB PO SCH (09:00)
[2016-09-28] MEDS ORDERED: LIRAGLUTIDE 18 MG/3ML (0.6 MG/0.1 ML) PEN SQ SCH (09:00)
[2016-09-28] MEDS ORDERED: [UNRECOGNIZED DRUG - OTHER] PO SCH (09:00)
[2016-09-28] MEDS ORDERED: GINKGO PO SCH (09:00)
[2016-09-28] MEDS ORDERED: MV MINERALS PO SCH (09:00)
[2016-09-28] MEDS ORDERED: LYCOPENE PO SCH (09:00)
[2016-09-28] MEDS ORDERED: CANAGLIFLOZIN 100 MG PO SCH (09:00)
[2016-09-28] MEDS ORDERED: PIOGLITAZONE HCL 15 MG TAB PO SCH (09:00)
[2016-09-28] MEDS ORDERED: PIOGLITAZONE HCL 30 MG PO SCH (09:00)
[2016-09-28] MEDS: METOPROLOL TARTRATE 50 MG TAB PO SCH ×2 (09:03→21:32)
[2016-09-28] MEDS: AMLODIPINE 10 MG TAB PO SCH (09:04)
[2016-09-28] MEDS: NS 1,000 ML IV SCH ×2 (09:08→17:13)
[2016-09-28 09:29] LABS: SEG NEUTROPHIL 14 % (45-76)
--- NOTE | 2016-09-28 09:38 | PCM.CONSGI ---
Consult Date: 09/28/16 Consult Requesting Physician: Andrew Dillon Consult Reason: Diarrhea - History of Present Illness Patient is a 76-year-old male was admitted to the hospital with worsening severe diarrhea. This diarrhea started about 2 weeks ago. Prior to that he had intermittent constipation, and he had a fecal impaction just prior to the onset of the diarrhea. There has been no visible blood per rectum. The stools have been multiple throughout the day and night, too numerous to count. He has incontinence. The patient's medical situation is complicated by the presence of a decubitus ulcer which has developed over the past 6 months due to neurological impairment and numbness secondary to degenerative disc disease. Patient denies any abdominal pain, heartburn, difficulty swallowing, nausea or vomiting. He had a colonoscopy 5 or 6 years ago. He was seen as an outpatient the day prior to admission and a stool for Clostridium difficile was negative. The stool was also cultured and is pending. I just talked to the laboratory, and confirmed the negative stool for Clostridium difficile. The culture plates are still early, but no significant growth is present at this point. Antigen test for Campylobacter and other bacterial pathogens are negatiive. - Past Medical History Cardiac History: Reports: Hypertension, Hypercholesterolemia. Denies: Coronary Artery Disease Respiratory History: Denies: Asthma, COPD GI/ History: Reports: Chronic Constipation Musculoskeletal History: Reports: Arthritis, Other Systemic History: Reports: Diabetes, Hyperthyroidism. 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 including numbness and ambulation difficulty - Surgical History Past Surgical History: Reports: No Significant History - Family History Family History: Reports: Blood Disorders (Mom with blood clot age 88), Diabetes, Cancer (no famioly history of colon cancer), Hypertension - Allergies Allergies No Known Allergies Allergy (Unverified 09/14/16 18:04) - Medications Home Medications Amlodipine [Norvasc] 10 mg PO DAILY 09/14/16 Benazepril HCl [Lotensin] 20 mg PO BID 09/14/16 Canagliflozin [Invokana] 300 mg PO DAILY 09/14/16 Docusate Sodium [Colace] 100 mg PO TID #30 capsule 09/14/16 Liraglutide [Victoza 2-Darrick] 1.2 mg SQ DAILY 09/14/16 Metoprolol Tartrate [Lopressor] 50 mg PO BID 09/14/16 Naproxen Sodium [Aleve] 440 mg PO QAM 09/14/16 PEG-Electrolytes (Miralax) [Miralax] 17 gm PO DAILY #30 each 09/14/16 Pioglitazone HCl [Actos] 30 mg PO DAILY 09/14/16 Simvastatin [Zocor] 40 mg PO QHS 09/14/16 Aspirin (Enteric Coated) [Ecotrin] 81 mg PO DAILY 09/27/16 Mv,Minerals/FA/Lycopene/Ginkgo [One Daily For Men 50+ Adv Tab] 1 tab PO DAILY - Social History Lives: Alone Smoking Status: Never smoker (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 negative: Chills, Fever Eyes: No Symptoms Reported Ears: No Symptoms Reported Throat: No Symptoms Reported Nose: No Symptoms Reported Mouth: No Symptoms Reported Respiratory: negative: Cough, Shortness of Breath, Wheezing Cardiovascular: negative: Chest Pain, Edema, Palpitations, Syncope Gastrointestinal: Diarrhea, Constipation (Previous history, last episode 2 weeks ago). negative: Nausea, Vomiting, Abdominal Pain, Melena, Hematochezia, Dysphasia, Heartburn Genitourinary: negative: Frequency, Hematuria Neurological: Gait Difficulty, Numbness (Lower trunk and extremities). negative : Dizziness, Headache, Seizure Musculoskeletal: Arthritis Integumentary: Pressure Sore Hematologic: negative: Lymphadenopathy, Anemia Endocrine: No Symptoms Reported - Exam Vital Signs: Temperature: 98.8 F (09/28/16 06:00) HR: 89 (09/28/16 06:00) RR: 20 (09/28/16 06:00) BP: 128/56 (09/28/16 06:00) Pulse Ox: 96 (09/28/16 06:00) General: Alert, Oriented x3, Cooperative, No acute distress HEENT: PERRLA. negative: Icteric Sclera, Pallor Respiratory: Normal - CTA. negative: Rales, Rhonchi, Wheezes Cardiovascular: Regular rate, Normal S1, Normal S2, No murmurs Gastrointestinal: Soft, Bowel Sounds (Normoactive bowel sounds). negative: Tender, Guarding, Hepatosplenomegaly Rectal Exam: Performed in presence of nurse, Normal to Palpation, Normal Prostate, Residue Hemoccult (-) Extremities: negative: Tenderness, Edema Skin: Warm,Dry and Intact, No rashes, Ulceration (2 centimeter decubitus ulceration over the sacrum) Neurological: Normal speech, Cranial nerves 3-12 NL Psych/Mental Status: Appropriate, Normal Affect, Cooperative - Labs Result Diagrams: 09/28/16 05:50 09/28/16 05:[address] SCAN Review of the images are consistent with a day inflammatory condition of the rectosigmoid colon. IMPRESSION: 1. Inflammatory changes involving the rectosigmoid colon suggesting infectious or inflammatory colitis. Consider ulcerative colitis. 2. Mild inflammatory changes and ulceration at the midline over the coccygeal region. No evidence of bone involvement or abscess. 3. Extensive vascular calcifications involving coronary arteries, abdominal aorta, and mesenteric vessels. Laboratory Tests 09/27/16 09/27/16 18:24 18:24 WBC 19.3 H Hgb 11.6 L Hct 34.9 L Plt Count 471 H BUN 33 H Creatinine 1.70 H Total Bilirubin 0.6 AST 89 H ALT 85 H Alkaline Phosphatase 79 Albumin 3.0 L - Assessment and Plan (1) Acute colitis Acute K52.9 - NONINFECTIVE GASTROENTERITIS AND COLITIS, UNSPECIFIED Comment: Presence of this acute significant diarrhea in the presence of a decubitus ulcer is quite is serious situation. It is unlikely that the ulcer will heal until the diarrhea is managed. Without abdominal pain or bleeding, ischemic colitis is highly unlikely. Cultures for acute infection or pending but should be available by tomorrow. Clostridium difficile toxin essay was negative initially, but this is such a classic clinical situation for that condition, I believe we need to repeat the stool for Clostridium difficile. Perhaps the specimen deteriorated before received by the laboratory. Pending negative stool culture and repeat Clostridium difficile, we will need to go ahead and do a colonoscopy to evaluate for inflammatory bowel disease. Microscopic colitis is a possibility. Ulcerative colitis seems very unlikely with a negative stool on my examination today. (2) Elevated transaminase level Acute R74.0 - NONSPEC ELEV OF LEVELS OF TRANSAMNS & LACTIC ACID DEHYDRGNSE Comment: The liver shows no evidence of fatty infiltration on CT scan. Nonalcoholic fatty liver disease is still a possibility, but we need to evaluate for possible viral etiologies. If these are negative, follow up as an outpatient will be appropriate. (3) Sacral decubitus ulcer Chronic L89.159 - PRESSURE ULCER OF SACRAL REGION, UNSPECIFIED STAGE unspecified pressure ulcer stage L89.159 - Pressure ulcer of sacral region, unspecified stage Recommendations: 1. REPEAT STOOL FOR CLOSTRIDIUM DIFFICILE 2. Clear liquid diet 3. Scheduled for colonoscopy on Saturday 4. Viral hepatitis profile Medical Decision Making: High New problem with work-up Labs and procedure ordered; reviewed CT scan; Aculte illness with threat to life CPT: 03819
[2016-09-28] MEDS ORDERED: Vaccine Screening Complete SCH (10:00)
[2016-09-28] MEDS: VITAMINS, MULTIPLE CAP PO SCH (11:41)
--- NOTE | 2016-09-28 16:52 | GENMEDPROG ---
Subjective Note: Patient in bed responsive follows commands, denies any nausea vomiting. Reports crampy abdominal pain and loose watery diarrhea. No blood in stool. Denies and difficulties breathing cough or phlegm production. Notes Reviewed: Yes Events from last night noted and discussed with Clinical Staff Current Medication List: Reviewed Currently: Reports: Cough, ORO, Diarrhea, Reflux Sx DVT Prophylaxis: Yes - Physical Examination Vital Signs and I&O: Last Vital Signs Temp 97 F L 09/28/16 10:10 Pulse 87 09/28/16 10:10 Resp 20 09/28/16 10:10 BP 122/55 L 09/28/16 10:10 Pulse Ox 96 09/28/16 10:10 Oxygen Pulse Oxygen Saturation 96 O2 Device Room Air Oxygen Flow Rate Fraction of Inspired Oxygen ( FIO2) Intake & Output 09/25/16 09/26/16 09/27/16 09/28/16 23:59 23:59 23:59 23:59 Intake Total 2875 1611 Output Total 2200 Balance 2875 -589 Patient's weight 113.534 kg 115.893 kg General: Alert, Oriented x3, Cooperative, No acute distress HEENT: Normal, PERRLA, EOMI, Anicteric Sclera Neck: Non-tender, Limited range of motion Lymphatics: Normal Respiratory: Normal - CTA, Diminished, Rhonchi. negative: Rales, Wheezes Cardiovascular: Regular rate, Normal S1, Normal S2, Murmurs GI: Normal bowel sounds, Soft, Non tender, No hepatospenomegaly, No masses, Obese Extremities/Musculoskeletal: Normal pulses, DJD. negative: Tenderness, Edema Skin: Warm,Dry and Intact, No rashes, No breakdown, No significant lesion, Ulceration (2 centimeter decubitus ulceration over the sacrum) Neurological: Normal speech, Cranial nerves 3-12 NL Psych/Mental Status: Anxious - Assessment (1) Colitis, acute Acute K52.9 - NONINFECTIVE GASTROENTERITIS AND COLITIS, UNSPECIFIED Comment/ Plan: Etiology not clear. Infection still a possibility. Follow stool cultures and test for C diff. Add p.o. Flagyl and IV Levaquin (2) Dehydration Acute E86.0 - DEHYDRATION Comment/Plan: Continue IV fluids (3) Non-insulin dependent type 2 diabetes mellitus Chronic E11.9 - TYPE 2 DIABETES MELLITUS WITHOUT COMPLICATIONS Comment/Plan : Hold on home regimen. Monitor blood sugar continue sliding scale regular insulin (4) Acute kidney injury Acute N17.9 - ACUTE KIDNEY FAILURE, UNSPECIFIED Comment/Plan: Likely due to dehydration. Avoid any nephrotoxins maintain hydration (5) Hyperlipidemia Chronic E78.5 - HYPERLIPIDEMIA, UNSPECIFIED Qualifiers: Hyperlipidemia type: mixed hyperlipidemia Qualified Code(s): E78.2 - Mixed hyperlipidemia Comment/Plan: cont. lipitor (6) Hypertension Chronic I10 - ESSENTIAL (PRIMARY) HYPERTENSION Qualifiers: Hypertension type: essential hypertension Qualified Code(s): I10 - Essential (primary) hypertension Comment/Plan: Continuation of previous antihypertensive therapy is necessary. - Plan Allergies No Known Allergies Allergy (Unverified 09/14/16 18:04) Last Vital Signs Temp 97 F L 09/28/16 10:10 Pulse 87 09/28/16 10:10 Resp 20 09/28/16 10:10 BP 122/55 L 09/28/16 10:10 Pulse Ox 96 09/28/16 10:10 09/28/16 05:50 09/28/16 05:50 Abnormal Lab Results 09/27/16 09/27/16 09/27/16 18:24 18:24 20:00 WBC 19.3 H RBC 3.76 L Hgb 11.6 L Hct 34.9 L Plt Count 471 H Seg Neuts % (Manual) 28 L Band Neutrophils % Lymphocytes % (Manual) 67 H Metamyelocytes % Absolute Lymphocytes 12.93 H Sodium 134 L Chloride Carbon Dioxide 20 L BUN 33 H Creatinine 1.70 H Estimated GFR (MDRD) 39 L Glucose 208 H POC Capillary Glucose Hemoglobin A1c Calculated Osmolality Calcium AST 89 H ALT 85 H Total Protein 6.2 L Albumin 3.0 L Urine Protein 1+ H Urine WBC 2-5 H Urine Bacteria 1+ H Stool Occult Blood 09/27/16 09/28/16 09/28/16 22:28 05:50 05:50 WBC 15.2 H RBC 3.20 L Hgb 9.9 L D Hct 29.4 L Plt Count 402 H Seg Neuts % (Manual) 14 L Band Neutrophils % 19 H Lymphocytes % (Manual) 55 H Metamyelocytes % 1 H Absolute Lymphocytes 8.36 H Sodium 135 L Chloride 110 H Carbon Dioxide 18 L BUN 28 H Creatinine 1.30 H Estimated GFR (MDRD) 54 L Glucose 133 H POC Capillary Glucose Hemoglobin A1c 6.9 H Calculated Osmolality 268 L Calcium 7.8 L AST ALT Total Protein Albumin Urine Protein Urine WBC Urine Bacteria Stool Occult Blood 09/28/16 09/28/16 11:30 11:44 WBC RBC Hgb Hct Plt Count Seg Neuts % (Manual) Band Neutrophils % Lymphocytes % (Manual) Metamyelocytes % Absolute Lymphocytes Sodium Chloride Carbon Dioxide BUN Creatinine Estimated GFR (MDRD) Glucose POC Capillary Glucose 163 H Hemoglobin A1c Calculated Osmolality Calcium AST ALT Total Protein Albumin Urine Protein Urine WBC Urine Bacteria Stool Occult Blood Pos H Case Care Discussed with: Patient, Nursing Staff Education/Counseling Given To: Patient Education/Counseling Given Regarding: Diagnosis, Treatment, Prognosis, Follow Up Total Time: 45 min. Critical Care: No Code: 43378 (12+)
[2016-09-28] MEDS ORDERED: Levofloxacin 750 mg/150 ml D5W 750 MG/150 ML RTU IV SCH (18:00)
[2016-09-28] MEDS: METRONIDAZOLE 500 MG TAB PO SCH (23:38)
[2016-09-29 04:43] VITALS: BMI 32.3
[2016-09-29] MEDS: SODIUM CHLORIDE 0.9% 3 ML FLUSH FLUSH SCH ×2 (05:42→16:34)
[2016-09-29 06:02] LABS: MPV 8.3 fL (7.4-10.4)
[2016-09-29] MEDS: REGULAR INSULIN 100 UNITS/ML - 3 ML VIAL SQ SCH ×4 (06:22→22:58)
[2016-09-29] MEDS: METRONIDAZOLE 500 MG TAB PO SCH ×3 (06:23→23:00)
[2016-09-29] MEDS: NS 1,000 ML IV SCH ×2 (06:28→16:31)
[2016-09-29 07:42] LABS: SEG NEUTROPHIL 25 % (45-76)
[2016-09-29] MEDS: METOPROLOL TARTRATE 50 MG TAB PO SCH ×2 (08:03→23:01)
[2016-09-29] MEDS: AMLODIPINE 10 MG TAB PO SCH (08:03)
[2016-09-29 09:39] LABS: HEPATITIS A AB IgG/IgM Negative (Negative); HEPATITIS B CORE AB (IGG/IGM) Negative (Negative)
[2016-09-29 09:45] LABS: HEPATITIS B SURFACE AB(IMMUNE) Non Reactive (.)
--- NOTE | 2016-09-29 10:44 | PCM.GIPROG ---
Progress Note (GI) Chief Complaint: Patient continues with diarrhea. Vital signs are stable. Repeat stool for clostridium difficile is negative. Cultures are also negative today. Plan will be to proceed with colonoscopy tomorrow. - Physical Exam Vital Signs: Temperature: 99.4 F (09/29/16 04:41) HR: 82 (09/29/16 04:41) RR: 18 (09/29/16 04:41) BP: 129/65 (09/29/16 04:41) Pulse Ox: 97 (09/29/16 04:41) General: Alert, Oriented x3, Cooperative, No acute distress Gastrointestinal: Soft, Bowel Sounds. negative: Tender Result Diagrams: 09/29/16 05:12 09/28/16 05:50 - Impression and Plan (1) Acute colitis Deleted K52.9 - NONINFECTIVE GASTROENTERITIS AND COLITIS, UNSPECIFIED (2) Elevated transaminase level Acute R74.0 - NONSPEC ELEV OF LEVELS OF TRANSAMNS & LACTIC ACID DEHYDRGNSE (3) Sacral decubitus ulcer Chronic L89.159 - PRESSURE ULCER OF SACRAL REGION, UNSPECIFIED STAGE Present on Admission: Yes unspecified pressure ulcer stage L89.159 - Pressure ulcer of sacral region, unspecified stage Comment: Specialty bed is ordered. Physical therapy for wound care is ordered. Plan: 1. Proceed with colonoscopy tomorrow as previously planned Additional Notes: AYANNA: Yovani CPT: 01081
[2016-09-29] MEDS: PROBIOTIC BLEND TAB PO SCH ×2 (11:16→16:35)
[2016-09-29] MEDS: VITAMINS, MULTIPLE CAP PO SCH (11:16)
--- NOTE | 2016-09-29 16:16 | GENMEDPROG ---
Subjective Note: Patient in chair responsive oriented follows commands. Still with diarrhea, denies any nausea vomiting or melena. Notes Reviewed: Yes Events from last night noted and discussed with Clinical Staff Currently: Reports: Cough, ORO, Diarrhea, Reflux Sx DVT Prophylaxis: Yes - Physical Examination Vital Signs and I&O: Last Vital Signs Temp 98.9 F 09/29/16 14:00 Pulse 79 09/29/16 14:00 Resp 20 09/29/16 14:00 BP 148/55 L 09/29/16 14:00 Pulse Ox 95 09/29/16 14:00 Oxygen Pulse Oxygen Saturation 95 O2 Device Room Air Oxygen Flow Rate Fraction of Inspired Oxygen ( FIO2) Intake & Output 09/26/16 09/27/16 09/28/16 09/29/16 23:59 23:59 23:59 23:59 Intake Total 2870 250 360 Output Total 4917 5910 Balance 3924 -5449 -9793 Patient's weight 113.534 kg 115.893 kg 114.396 kg General: Alert, Oriented x3, Cooperative, No acute distress HEENT: Normal, PERRLA, EOMI, Anicteric Sclera Neck: Non-tender, Limited range of motion Lymphatics: Normal Respiratory: Diminished, Rhonchi Cardiovascular: Regular rate, Normal S1, Normal S2, Murmurs GI: Normal bowel sounds, Soft, Non tender, No hepatospenomegaly, No masses, Obese Extremities/Musculoskeletal: Edema Skin: Warm,Dry and Intact, No rashes, No breakdown, No significant lesion Neurological: Normal speech, Normal tone, Cranial nerves 3-12 NL Psych/Mental Status: Anxious Lab/DI/Studies Reviewed: Allergies No Known Allergies Allergy (Unverified 09/14/16 18:04) Last Vital Signs Temp 98.9 F 09/29/16 14:00 Pulse 79 09/29/16 14:00 Resp 20 09/29/16 14:00 BP 148/55 L 09/29/16 14:00 Pulse Ox 95 09/29/16 14:00 09/29/16 05:12 09/28/16 05:50 Last Vital Signs Temp 98.9 F 09/29/16 14:00 Pulse 79 09/29/16 14:00 Resp 20 09/29/16 14:00 BP 148/55 L 01/28/17 14:00 Pulse Ox 95 09/29/16 14:00 - Assessment (1) Colitis, acute Acute K52.9 - NONINFECTIVE GASTROENTERITIS AND COLITIS, UNSPECIFIED Comment/ Plan: Etiology not clear. Continue antibiotics. Await final stool cultures.. Follow by GI and scheduled for colonoscopy in the morning tomorrow (2) Dehydration Acute E86.0 - DEHYDRATION Comment/Plan: Continue IV fluids (3) Non-insulin dependent type 2 diabetes mellitus Chronic E11.9 - TYPE 2 DIABETES MELLITUS WITHOUT COMPLICATIONS Comment/Plan : Hold on home regimen. Monitor blood sugar continue sliding scale regular insulin (4) Acute kidney injury Acute N17.9 - ACUTE KIDNEY FAILURE, UNSPECIFIED Comment/Plan: Likely due to dehydration. Avoid any nephrotoxins maintain hydration. Renal function much improved (5) Hyperlipidemia Chronic E78.5 - HYPERLIPIDEMIA, UNSPECIFIED Qualifiers: Hyperlipidemia type: mixed hyperlipidemia Qualified Code(s): E78.2 - Mixed hyperlipidemia Comment/Plan: cont. lipitor (6) Hypertension Chronic I10 - ESSENTIAL (PRIMARY) HYPERTENSION Qualifiers: Hypertension type: essential hypertension Qualified Code(s): I10 - Essential (primary) hypertension Comment/Plan: Continuation of previous antihypertensive therapy is necessary. Case Care Discussed with: Patient, Consultants, Nursing Staff, Wall Steamer Education/Counseling Given To: Patient Education/Counseling Given Regarding: Diagnosis, Treatment, Prognosis, Follow Up Total Time: 45 min . Critical Care: No Code: 42560 (12+)
[2016-09-29] MEDS: SODIUM SULFATE PO SCH (16:31)
[2016-09-29] MEDS: POTASSIUM SULFATE PO SCH (16:31)
[2016-09-29] MEDS: MAGNESIUM SULFATE PO SCH (16:31)
[2016-09-29] MEDS: Levofloxacin 500 mg/100 ml D5W 500 MG/100 ML RTU IV SCH (16:35)
[2016-09-29] MEDS: ENOXAPARIN 60 MG/0.6 ML PFS SQ SCH (16:36)
[2016-09-30] MEDS: NS 1,000 ML IV SCH ×5 (03:15→21:43)
[2016-09-30] MEDS: SODIUM SULFATE PO SCH (04:36)
[2016-09-30] MEDS: POTASSIUM SULFATE PO SCH (04:36)
[2016-09-30] MEDS: MAGNESIUM SULFATE PO SCH (04:36)
[2016-09-30] MEDS: REGULAR INSULIN 100 UNITS/ML - 3 ML VIAL SQ SCH ×4 (05:55→20:31)
[2016-09-30] MEDS: METRONIDAZOLE 500 MG TAB PO SCH ×3 (05:56→21:43)
[2016-09-30] MEDS: SODIUM CHLORIDE 0.9% 3 ML FLUSH FLUSH SCH ×2 (05:56→17:40)
[2016-09-30 06:14] LABS: MPV 8.5 fL (7.4-10.4)
[2016-09-30] MEDS: METOPROLOL TARTRATE 50 MG TAB PO SCH ×2 (08:19→20:34)
[2016-09-30] MEDS: AMLODIPINE 10 MG TAB PO SCH (08:19)
[2016-09-30 08:28] LABS: SEG NEUTROPHIL 21 % (45-76)
[2016-09-30] MEDS: FENTANYL 100 MCG/2 ML VIAL ONE ×2 (10:08→10:43)
[2016-09-30] MEDS: MIDAZOLAM 5 MG/5 ML VIAL ONE ×4 (10:09→10:44)
--- NOTE | 2016-09-30 10:43 | PCM.GIPROG ---
Progress Note (GI) Chief Complaint: Colonoscopy today reveals findings consistent with Crohn's colitis. I am still mildly concerned about Clostridium difficile colitis, although the possibility of having this condition with the toxin assays being negative is very small. Ischemic colitis is also a possibility, although the distribution an endoscopic appearance would be atypical. - Physical Exam Vital Signs: Temperature: 97.8 F (09/30/16 09:42) HR: 70 (09/30/16 10:30) RR: 20 (09/30/16 10:30) BP: 105/52 (09/30/16 10:30) Pulse Ox: 94 (09/30/16 10:30) Result Diagrams: 09/30/16 05:00 09/28/16 05:50 - Impression and Plan (1) Crohn's colitis Acute K50.10 - CROHN'S DISEASE OF LARGE INTESTINE WITHOUT COMPLICATIONS D Plan: 1. Oral steroids 2. Lialda 3. Flagyl 4. Following the hospital for few days to verify response. 5. Follow-up will be in my office 2 weeks after discharge Additional Notes: CPT: no charge
[2016-09-30] MEDS ORDERED: Medication Special Instructions SCH (11:00)
[2016-09-30] MEDS: PREDNISONE 20 MG TAB PO SCH (12:41)
[2016-09-30] MEDS: PROBIOTIC BLEND TAB PO SCH ×2 (12:42→17:39)
[2016-09-30] MEDS: MESALAMINE 1.2 GM PO SCH (12:42)
[2016-09-30] MEDS: VITAMINS, MULTIPLE CAP PO SCH (12:43)
--- NOTE | 2016-09-30 15:03 | GENMEDPROG ---
Subjective Note: Patient bed responsive follows commands, diarrhea slowly subsiding. Denies any abdominal pain nausea vomiting.. Colonoscopy results-showing Crohn's colitis- discussed with the patient again. Notes Reviewed: Yes Events from last night noted and discussed with Clinical Staff Current Medication List: Reviewed Currently: Reports: Cough, ORO, Diarrhea, Reflux Sx DVT Prophylaxis: Yes - Physical Examination Vital Signs and I&O: Last Vital Signs Temp 96.6 F L 09/30/16 14:00 Pulse 81 09/30/16 14:00 Resp 18 09/30/16 14:00 BP 134/56 L 09/30/16 14:00 Pulse Ox 98 09/30/16 14:00 Oxygen Pulse Oxygen Saturation 98 O2 Device Room Air Oxygen Flow Rate 2 Fraction of Inspired Oxygen ( FIO2) Intake & Output 09/27/16 09/28/16 09/29/16 09/30/16 23:59 23:59 23:59 23:59 Intake Total 2875 2507 2112 1850 Output Total 5050 2040 1875 Balance 2875 -2543 -1138 -25 Patient's weight 113.534 kg 115.893 kg 114.396 kg 114.419 kg General: Alert, Oriented x3, Cooperative, No acute distress HEENT: Normal, PERRLA, EOMI, Anicteric Sclera Neck: Non-tender, Limited range of motion Lymphatics: Normal Respiratory: Diminished, Rhonchi Cardiovascular: Regular rate, Normal S1, Normal S2, Murmurs GI: Normal bowel sounds, Soft, Non tender, No hepatospenomegaly, No masses, Obese Extremities/Musculoskeletal: Edema Skin: Warm,Dry and Intact, No rashes, No breakdown, No significant lesion Neurological: Normal speech, Normal tone, Cranial nerves 3-12 NL Psych/Mental Status: Anxious Lab/DI/Studies Reviewed: Last Vital Signs Temp 96.6 F L 09/30/16 14:00 Pulse 81 09/30/16 14:00 Resp 18 09/30/16 14:00 BP 134/56 L 09/30/16 14:00 Pulse Ox 98 09/30/16 14:00 09/30/16 05:00 09/28/16 05:50 Microbiology 09/29/16 08:33 Stool Campylobacter Antigen Assay - Final NEGATIVE ("NORMAL" value = "NEGATIVE".) 09/29/16 08:33 Stool Shiga Toxin I - Final 09/29/16 08:33 Stool Shiga Toxin II - Final 09/29/16 08:33 Stool Stool for WBCs - Final 09/28/16 11:35 Urine - In/Out Catheter Urine Culture - Final No growth <10,00O CFU/ml 09/29/16 09:00 Stool Stool Consistency (FILIPE) - Final 09/29/16 09:00 Stool Stool Mucus (FILIPE) - Final 09/29/16 09:00 Stool Clostridium difficile (PCR) - Final NEGATIVE A single negative test for C. difficile indicates the likelihood that this organism is causing the diarrheal illness is extremely low. Therefore, repeat testing is strongly discouraged. If a new diarrheal illness occurs more than 7 days after the initial negative test, then sending a single repeat specimen may be indicated. ([employer] Gen[employer]pert C. difficile/Epi by PCR: Performance characteristics have not been established for patients <2 years of age - per perishable fruit inspector limitations.) 09/29/16 09:00 Stool Clostridium difficile 027 (PCR) - Final PRESUMPTIVE NEGATIVE (For in vitro diagnostic use only. 027-NAP1-BI results are NOT intended to guide treatment of C. difficile infections. (Infection Control Hosp Epidemiol 2010;31:431-455)) - Assessment (1) Acute Crohn's disease Acute K50.90 - CROHN'S DISEASE, UNSPECIFIED, WITHOUT COMPLICATIONS Qualifiers: Digestive disease complication type: without complication Qualified Code(s) : K50.90 - Crohn's disease, unspecified, without complications Comment/Plan: Await colonoscopy biopsy results. As per GI started on prednisone and Lialda (2) Dehydration Resolved E86.0 - DEHYDRATION Comment/Plan: Continue IV fluids (3) Non-insulin dependent type 2 diabetes mellitus Chronic E11.9 - TYPE 2 DIABETES MELLITUS WITHOUT COMPLICATIONS Comment/Plan : Hold on home regimen. Monitor blood sugar continue sliding scale regular insulin (4) Acute kidney injury Resolved N17.9 - ACUTE KIDNEY FAILURE, UNSPECIFIED Comment/Plan: Renal function back to normal (5) Hyperlipidemia Chronic E78.5 - HYPERLIPIDEMIA, UNSPECIFIED Qualifiers: Hyperlipidemia type: mixed hyperlipidemia Qualified Code(s): E78.2 - Mixed hyperlipidemia Comment/Plan: cont. lipitor (6) Hypertension Chronic I10 - ESSENTIAL (PRIMARY) HYPERTENSION Qualifiers: Hypertension type: essential hypertension Qualified Code(s): I10 - Essential (primary) hypertension Comment/Plan: Continuation of previous antihypertensive therapy is necessary. (7) Colitis, acute Acute K52.9 - NONINFECTIVE GASTROENTERITIS AND COLITIS, UNSPECIFIED Comment/ Plan: Colonoscopy shows Crohn's colitis. Await biopsy results. Started on steroids and Lialda per GI. Infectious workup negative so far. (8) Retention, urine Acute R33.9 - RETENTION OF URINE, UNSPECIFIED Comment/Plan: Voiding trial, DC [place] Case Care Discussed with: Patient, Consultants, Nursing Staff, Running Instructor Education/Counseling Given To: Patient Education/Counseling Given Regarding: Diagnosis, Treatment, Prognosis, Follow Up Total Time: 45 min . Critical Care: No Code: 84135 (12+)
--- NOTE | 2016-09-30 16:31 | HIMOP ---
DATE OF PROCEDURE: PROCEDURE: Colonoscopy. INDICATIONS FOR PROCEDURE: The patient with diarrhea. INSTRUMENT: Olympus video upper endoscope. SEDATION: 5 milligrams of Versed and 50 micrograms of fentanyl intravenously. DESCRIPTION OF PROCEDURE: After intravenous sedation, endoscope was inserted in the rectum without difficulty. It was then advanced to the cecum where the ileocecal valve was identified, but not intubated. The prep was adequate. Slow withdrawal back up to the colon revealed no significant lesions until the rectosigmoid was reached. There was extensive deep ulceration present throughout the upper rectum and sigmoid colon, extending to about 50 centimeters. The ulcerations were confluent and at times circumferential. There was islands of inflamed mucosa scattered throughout, with 90% of the mucosa in this area being ulcerated. The rectum had relative sparing although there were few isolated ulcerations in the rectum. The inflammation started at approximately 8 centimeters. Multiple biopsies were obtained. The findings are most consistent with Crohn's colitis. Ischemic colitis is another possibility, and I am still somewhat concerned about Clostridium difficile, and although 2 lázaro assays were negative. IMPRESSION: Crohn's colitis. RECOMMENDATIONS: 1. Oral Steroids 2. Mesalamine 3. continue coverage with Flagyl 4. Follow up in the office 2 weeks after discharge [id number] cc: Lilia Shepard MD CPT: 88815 MTDD
[2016-09-30] MEDS: ENOXAPARIN 60 MG/0.6 ML PFS SQ SCH (17:39)
[2016-09-30] MEDS: Levofloxacin 500 mg/100 ml D5W 500 MG/100 ML RTU IV SCH (17:39)
[2016-09-30] MEDS: BETHANECHOL 25 MG TAB PO SCH (17:49)
[2016-09-30] MEDS ORDERED: TAMSULOSIN HCL 0.4 MG CAP PO SCH (21:00)
[2016-10-01] MEDS: BETHANECHOL 25 MG TAB PO SCH ×3 (00:20→12:31)
[2016-10-01] MEDS: NS 1,000 ML IV SCH ×2 (00:36→09:01)
[2016-10-01] MEDS: REGULAR INSULIN 100 UNITS/ML - 3 ML VIAL SQ SCH ×2 (05:26→12:31)
[2016-10-01] MEDS: METRONIDAZOLE 500 MG TAB PO SCH ×2 (05:27→14:38)
[2016-10-01] MEDS: SODIUM CHLORIDE 0.9% 3 ML FLUSH FLUSH SCH (05:27)
[2016-10-01 07:10] LABS: AUTOMATED LYMPH 66.3 % (17-44); AUTOMATED MONOCYTE 3.3 % (3-10); AUTOMATED NEUTROPHIL 30.4 % (45-76); MPV 7.9 fL (7.4-10.4)
[2016-10-01 07:33] LABS: BLOOD UREA NITROGEN 17 MG/DL (9-20); CALCIUM 8.1 MG/DL (8.4-10.2); CALCULATED OSMOLALITY 270 MOs/Kg (270-290); CHLORIDE 109 mEq/L (98-107); GLUCOSE 165 MG/DL (70-99); SODIUM LEVEL 137 mEq/L (137-146)
[2016-10-01] MEDS: MESALAMINE 1.2 GM PO SCH (09:04)
[2016-10-01] MEDS: METOPROLOL TARTRATE 50 MG TAB PO SCH (09:04)
[2016-10-01] MEDS: AMLODIPINE 10 MG TAB PO SCH (09:04)
[2016-10-01] MEDS: PREDNISONE 20 MG TAB PO SCH (09:05)
--- NOTE | 2016-10-01 10:41 | PCM.DCS92 ---
[id number] without complication K50.90 - Crohn's disease, unspecified, without complications Comment: Await colonoscopy biopsy results. As per GI started on prednisone and Mesalamine (2) Diarrhea Acute R19.7 - DIARRHEA, UNSPECIFIED Present on Admission: Yes unspecified type R19.7 - Diarrhea, unspecified Comment: Concerned his diarrhea is due to ischemic colitis vs Crohn's and may need angiogram to consider whether not he needs a stent or more. Will follow- up w/ Dr Garza in office. Stool for C difficile is negative and cultures white cells etc are pending. (3) Non-insulin dependent type 2 diabetes mellitus Chronic E11.9 - TYPE 2 DIABETES MELLITUS WITHOUT COMPLICATIONS Present on Admission: Yes Comment: Resume Victoza, Invokana, and Actos. Monitor blood sugar, continue sliding scale regular insulin (4) Acute kidney injury Resolved N17.9 - ACUTE KIDNEY FAILURE, UNSPECIFIED Present on Admission: Yes Comment: Renal function back to normal (5) Elevated transaminase level Acute R74.0 - NONSPEC ELEV OF LEVELS OF TRANSAMNS & LACTIC ACID DEHYDRGNSE Present on Admission: Yes (6) Leukocytosis Acute D72.829 - ELEVATED WHITE BLOOD CELL COUNT, UNSPECIFIED Present on Admission: Yes bandemia D72.825 - Bandemia Comment: Likely associated with this colitis. Patient is also on steroids which will prolong the reaction. (7) Hyperlipidemia Chronic E78.5 - HYPERLIPIDEMIA, UNSPECIFIED Present on Admission: Yes mixed hyperlipidemia E78.2 - Mixed hyperlipidemia Comment: cont. lipitor (8) Hypertension Chronic I10 - ESSENTIAL (PRIMARY) HYPERTENSION Present on Admission: Yes essential hypertension I10 - Essential (primary) hypertension Comment: Controlled with amlodipine and metoprolol. (9) Dehydration Resolved E86.0 - DEHYDRATION Present on Admission: Yes Comment: Discontinue IV fluids (10) Sacral decubitus ulcer Chronic L89.159 - PRESSURE ULCER OF SACRAL REGION, UNSPECIFIED STAGE Present on Admission: Yes unspecified pressure ulcer stage L89.159 - Pressure ulcer of sacral region, unspecified stage Comment: Specialty bed is ordered. Physical therapy for wound care is ordered. (11) Retention, urine Acute R33.9 - RETENTION OF URINE, UNSPECIFIED Comment: Voiding trial, DC Ritchie Discharge Disposition: Discharge w/ Home Health Discharge Condition: Improved Cognitive Discharge Status: Unimpaired Physician Follow up/Referrals: Christoph Garza MD [Staff Physician] - Two Weeks Lilia Shepadr MD [Staff Physician] - 10/03/16 8:20 am Home Medications / New Prescriptions: New Acetaminophen Tablet [TYLENOL Tablet] 325 mg PO Q6H PRN #100 tablet PRN Reason: Mild Pain Or Fever Above 100.4 Bethanechol [Urecholine] 25 mg PO TID #100 tablet Lialda 4.8 gm PO DAILY #60 Metronidazole [Flagyl] 500 mg PO Q8 #30 tablet Prednisone [Deltasone, Orasone] 40 mg PO DAILYWM #60 tablet Probiotic Blend [Lore Q] 1 tab PO BIDLS #60 tablet Tamsulosin HCl [Flomax] 0.4 mg PO BID #60 capsule Continue Simvastatin [Zocor] 40 mg PO QHS Naproxen Sodium [Aleve] 440 mg PO QAM Liraglutide [Victoza 2-Darrick] 1.2 mg SQ DAILY Pioglitazone HCl [Actos] 30 mg PO DAILY Canagliflozin [Invokana] 300 mg PO DAILY Benazepril HCl [Lotensin] 20 mg PO BID Amlodipine [Norvasc] 10 mg PO DAILY Metoprolol Tartrate [Lopressor] 50 mg PO BID Docusate Sodium [Colace] 100 mg PO TID #30 capsule PEG-Electrolytes (Miralax) [Miralax] 17 gm PO DAILY #30 each Aspirin (Enteric Coated) [Halfprin] 81 mg PO DAILY Mv,Minerals/FA/Lycopene/Ginkgo [One Daily For Men 50+ Adv Tab] 1 tab PO DAILY O2 Device: Room Air Additional Instructions: Sacral wound to be cleaned with DWC and 4x4, skin prep applied to surrounding wound, stoma-adhesive applied to skin superior to anus. Duoderm extra thin to be applied over stoma adhesive, open area covered with medi-honey, then secured with Allevyn adhesive and further reinforce with medipore tape. Diet at Discharge: Heart Healthy, Diabetic, 1800 Calorie Activity: As Tolerated Call Office For: Worsening Symptoms, Fever over 101 F Discontinue use of:: Alcohol, All Types of Tobacco - DC Summary Notes Home Health Need / Snf Services:: Due to the presence of and/or risk of Wound deterioration a skilled Assessment and observation of skin/wound status and measurement is required for this patient. Short-term nursing care needed for wound care monitor for signs of infection and education when care for family to perform dressing changes. This assessment could include but not limited to teaching, training of disease process and symptom management, pain and symptom management, perform/instruct on wound care until healed or becomes chronic status. Patient requires a skilled evaluation for rehabilitation services. To include gait training, transfer training and stair training. Instruction on use of assistive devices for ambulation on all surfaces. Instruct and upgrade home exercise program and therapeutic exercises to increase strength and endurance.Passive and active ROM exercises for strengthening. Recommend home adaptation to facilitate safety. Safety, pain and medication management. Hospital Course Note:: Discharge summary on patient named SU MCCLAIN admitted to [facility] on 09/27/16 by Andrew Dillon MD. Date of discharge is []. Mr. Su Mcclain is a 76 year old man who presented with a one week history of black tarry stools and weakness. He was mildy dehydrated with an acute kidney injury and had an elevated WBC of 19,000 on admission. He was admitted for further evaluation and hydration. GI consultation was obtained with the industrial roof plumber production line operator, Dr. Garza, who did a colonoscopy and stated that the patient had clear signs of Crohn's disease but also there was a concern for ischemic colitis. He recommended starting the patient on Lialda (mesalamine) 4.8 g daily, which has been initiated, and a prednisone taper. Stool cultures and DNA antigen testing for Clostridia toxin were negative. Pathology from colon biopsy is still pending. Follow-up with Dr. Garza in [address] Shepard in 1-2 weeks. Total Time: 45 min Code: 60420 (>30min.) - Physical Exam Vital Signs: Last Vital Signs Temp 97.9 F 10/01/16 09:53 Pulse 71 10/01/16 09:53 Resp 20 10/01/16 09:53 BP 121/58 L 10/01/16 09:53 Pulse Ox 95 10/01/16 09:53 Oxygen Pulse Oxygen Saturation 95 O2 Device Room Air Oxygen Flow Rate 2 Fraction of Inspired Oxygen ( FIO2) Constitutional: Alert (Awake, Fully oriented. Normal and appropriate affect.Well appearing. Well nourished.), No apparent distress Oriented to: Time, Person, Place - HEENT Head: Normal Eye: Normal Oropharynx: Normal Tympanic Membrane: Normal ENT EAC: Normal TMJ: Normal Nose: No Symptoms Reported - Respiratory/Cardiovascular Respiratory: Normal - CTA, Diminished Cardiovascular: Normal - GI Auscultation: Normal (normal active sounds) Palpation: Normal (Soft,non distended,nontender. No hepatosplenomegaly.) Tenderness: Non tender (No rebound or guarding) Casillas's Sign: Negative Rectal Exam: Deferred Stool: Loose - Musculoskeletal Back: Normal (Non-Tender) Extremities: Normal (Normal tone, DP pulses 2+ bilaterally, No cyanosis or edema bilaterally, FROM bilaterally.) - Integumentary Skin: Warm, Dry Lymphatics: Normal - Neurologic Memory Impaired: Normal Motor Function: Normal Cranial Nerve: Normal Cerebellar: Normal (Babinski: toes downgoing bilaterally. Intact Finger to nose. Sensory grossly intact to light touch. Intact rapid alternating movements bilaterally. No pronator drift.) Mood Description: Normal (Fully oriented. Normal and appropriate affect.), Appropriate, Calm Thought: Coherent Perception: Normal (Normal and appropriate affect.) - Other Exam Other Exam Findings: CT Abd/pelvis:IMPRESSION: 1. Inflammatory changes involving the rectosigmoid colon suggesting infectious or inflammatory colitis. Consider ulcerative colitis. 2. Mild inflammatory changes and ulceration at the midline over the coccygeal region. No evidence of bone involvement or abscess. 3. Extensive vascular calcifications involving coronary arteries, abdominal aorta, and mesenteric vessels. Electronically Signed By: Randy Chaparro M.D. On: 09/27/2016 21:38
[2016-10-01] MEDS ORDERED: MESALAMINE 400 MG PO SCH (12:00)
[2016-10-01 12:05] LABS: TOTAL PROTEIN 4.5 G/DL (6.3-8.2)
[2016-10-01] MEDS: VITAMINS, MULTIPLE CAP PO SCH (12:30)
[2016-10-01] MEDS: PROBIOTIC BLEND TAB PO SCH (12:30)
[2016-10-01 14:17] VITALS: BP 129/62; PULSE 70; TEMP 98.5
--- NOTE | 2016-10-01 16:16 | PCM.GIPROG ---
Progress Note (GI) Chief Complaint: Was to go home. He still having diarrhea but has decreased some. Pathology on the colonoscopy report is still pending. He denies any abdominal pain is eating normally. He is not having any fever although his white count still mildly elevated. - Physical Exam Vital Signs: Temperature: 98.5 F (10/01/16 14:00) HR: 70 (10/01/16 14:00) RR: 20 (10/01/16 14:00) BP: 129/62 (10/01/16 14:00) Pulse Ox: 98 (10/01/16 14:00) General: Alert, Oriented x3, Cooperative, No acute distress Gastrointestinal: Soft, Bowel Sounds. negative: Distended, Tender Result Diagrams: 10/01/16 06:19 10/01/16 06:19 - Impression and Plan (1) Crohn's colitis Acute K50.10 - CROHN'S DISEASE OF LARGE INTESTINE WITHOUT COMPLICATIONS Plan: 1. Continue on Lialda, prednisone, and Flagyl on discharge 2. Follow up with me in my office for 2 weeks, an appointment has been made 3. Patient can call my office if he has any worsening this condition over the next 2 weeks Additional Notes: CPT: 04860
[2016-10-01 22:40] LABS: NOROVIRUS G-I Negative (Negative)
[2016-10-02 07:57] LABS: NOROVIRUS G-II Negative (Negative)
== END 2016-10-01 16:24 | disposition home health service (06) | DRG 386 ==
LOC: ED 17:32 → MPS3 22:28
PROVIDERS: ADMIT Internal Medicine; ATTEND Family Medicine
PROC: 0DBP8ZX Excision of Rectum, Via Natural or Artificial Opening Endoscopic, Diagnostic (ICD-10-PCS; principal; 2016-09-30)
PROC: 0DBN8ZX Excision of Sigmoid Colon, Via Natural or Artificial Opening Endoscopic, Diagnostic (ICD-10-PCS; 2016-09-30)
DX: K50.90 Crohn's disease, unspecified, without complications (principal); K55.9 Vascular disorder of intestine, unspecified; N17.9 Acute kidney failure, unspecified; L89.159 Pressure ulcer of sacral region, unspecified stage; E11.9 Type 2 diabetes mellitus without complications; E86.0 Dehydration; D72.825 Bandemia; I10 Essential (primary) hypertension; R74.0 Nonspecific elevation of levels of transaminase and lactic acid dehydrogenase [LDH]; E78.2 Mixed hyperlipidemia; R33.9 Retention of urine, unspecified; E78.00 Pure hypercholesterolemia, unspecified; M19.90 Unspecified osteoarthritis, unspecified site; Z79.899 Other long term (current) drug therapy
CPT/HCPCS: 36415; 45380; 51701; 74177; 80048; 80053; 80076; 81001; 82043; 82150; 82272; 82962; 83036; 83605; 83630; 83690; 83735; 84443; 85007; 85025; 85027; 86704; 86706; 86708; 86709; 86803; 87040; 87045; 87046; 87086; 87427; 87449; 87493; 87798; 96360; 96361; 96372; 97163; 99152; 99153; 99284; A9698; G0237; J1650; J1956; J2250; J3010; J3490